=== PATIENT | female | born 1965 | race Caucasian/White ===

== ENCOUNTER 2017-04-15 16:41 | Emergency (ER) | payer MEDICAID ==
[~2017-04-15] VITALS: Ht 172.7 cm; Wt 65.9 kg
[2017-04-15 16:54] VITALS: TEMP 98.6
[2017-04-15] MEDS ORDERED: PROCARDIA XL90 MG PO (16:59)
[2017-04-15] MEDS ORDERED: ZESTRIL40 MG PO (16:59)
[2017-04-15] MEDS ORDERED: ROBAXIN 75750 MG/TAB PO (18:13)
[2017-04-15 18:38] VITALS: BP 156/88; PULSE 88
== END 2017-04-15 18:42 | disposition home or self-care (01) ==
LOC: COL.ER 16:41
DX: G89.29 Other chronic pain (principal); M54.2 Cervicalgia; I10 Essential (primary) hypertension; F17.210 Nicotine dependence, cigarettes, uncomplicated; Z87.39 Personal history of other diseases of the musculoskeletal system and connective tissue; Z90.49 Acquired absence of other specified parts of digestive tract; Z98.890 Other specified postprocedural states; Z90.710 Acquired absence of both cervix and uterus; Z90.721 Acquired absence of ovaries, unilateral
CPT/HCPCS: J1170